=== PATIENT | male | born 1945 | race Caucasian/White ===

== ENCOUNTER 2018-06-07 06:18 | Day surgery (SDC) | payer MEDICARE, OTHER ==
[2018-06-07] MEDS ORDERED: CEFAZOLIN 2 GM/50 ML (PMX) 50 ML IVPB (07:00)
[2018-06-07] MEDS: SOD CHLORIDE 0.9% 1,000 ML IV (07:30)
[2018-06-07] MEDS: INSULIN REGULAR, HUMAN 100 UNIT/1 ML 3ML VIAL SC (07:48)
[2018-06-07] MEDS ORDERED: PROPOFOL 0 ML (08:42)
[2018-06-07] MEDS ORDERED: FENTAnyl 50 MCG/ML VIAL (08:43)
[2018-06-07] MEDS ORDERED: MIDAZOLAM 1 MG/ML 2 ML INJ (08:43)
[2018-06-07] MEDS ORDERED: CEFAZOLIN 1 GM INJ (08:51)
[2018-06-07] MEDS: LIDOCAINE 2% (MDV) 20 ML INJ (08:57)
[2018-06-07] MEDS: BUPIVACAINE 0.25% (MPF) 30 ML INJ (08:57)
[2018-06-07] MEDS ORDERED: IBUPROFEN 800 MG TAB PO (09:30)
[2018-06-07] MEDS ORDERED: FENTAnyl 50 MCG/ML VIAL IV ×3 (09:30)
[2018-06-07] MEDS ORDERED: LABETALOL HCL 20MG INJ IV (09:30)
[2018-06-07] MEDS ORDERED: MEPERIDINE 25 MG INJ IV (09:30)
[2018-06-07] MEDS ORDERED: ONDANSETRON 4 MG INJ IV (09:30)
[2018-06-07] MEDS ORDERED: DIPHENHYDRAMINE 50 MG INJ IV (09:30)
[2018-06-07] MEDS ORDERED: hydrALAzine 20 MG INJ IV (09:30)
[2018-06-07] MEDS ORDERED: MIDAZOLAM 1 MG/ML 2 ML INJ IV (09:30)
[2018-06-07] MEDS ORDERED: METOCLOPRAMIDE 10 MG INJ IV (09:30)
[2018-06-07] MEDS ORDERED: OXYCODONE/ACETAMINOPHEN (5/325) TAB PO ×2 (09:30)
[2018-06-07] MEDS: EPHEDrine SULFATE 50 MG/5 ML SYG IV (09:45)
== END 2018-06-07 10:20 | disposition home or self-care (01) ==
LOC: SDS 06:18
DX: L72.0 Epidermal cyst (principal); I10 Essential (primary) hypertension
CPT/HCPCS: 14001; 82962; 88307